=== PATIENT | female | born 1980 | race Caucasian/White ===

== ENCOUNTER → 2020-05-11 16:00 | Outpatient (CLI) | payer OTHER, SELFPAY ==
--- NOTE | ~2020-05-11 | MM_ITS ---
EXAMINATION: MM screening [facility] BI w balta HISTORY: Screening mammogram TECHNIQUE: Craniocaudal and mediolateral oblique 3-D tomosynthesis images were obtained and synthetic 2-D images were generated. CAD analysis was submitted and interpreted. COMPARISON: None, baseline BREAST PARENCHYMAL COMPOSITION: The breasts are heterogeneously dense, which may obscure small masses . FINDINGS: RIGHT BREAST: Asymmetry is present in the posterior third of the upper breast on the mediolateral obl ique view. LEFT BREAST: There is low-density mass in the posterior third of the outer breast which could reflect a cyst. No suspicious calcification or architectural distortion are identified. IMPRESSION: 1. Bilateral breast findings as described above. 2. Additional mammographic views and possible breast ultrasound are recommended to evaluate for malig daysi and establish a baseline given that this is the first mammographic examination. BI-RADS Category 0: Incomplete: Needs additional imaging evaluation. Reviewed, dictated and finalized at location A. DRY MELT SUPERVISOR IMPRESSION: 1. Bilateral breast findings as described above. 2. Additional mammographic views and possible breast ultrasound are recommended to evaluate for malignancy and establish a baseline given that this is the fir st mammographic examination. BI-RADS Category 0: Incomplete: Needs additional imaging evaluation.
== END ==
PROVIDERS: PCP Family Medicine; Visit Provider Family Medicine
DX: Z12.31 Encounter for screening mammogram for malignant neoplasm of breast (principal); R92.8 Other abnormal and inconclusive findings on diagnostic imaging of breast
CPT/HCPCS: 77063; 77067

== ENCOUNTER → 2020-06-11 08:53 | Outpatient (CLI) | payer OTHER, SELFPAY ==
--- NOTE | ~2020-06-11 | MMUS_ITS ---
EXAMINATION: MM diagnostic mammo BI, US breast LT limited HISTORY: Right breast asymmetry and left breast mass on baseline screening mammogram TECHNIQUE: Additional 3-D tomosynthesis images of the breasts were performed and synthetic 2-D images were generated. CAD analysis was submitted and interpreted. High resolution limited left breast ultr asound was performed. COMPARISON: 05/11/2020 FINDINGS: MAMMOGRAPHIC FINDINGS: Right breast: No persistent asymmetry is identified with spot compression of the right breast. Left breast: There is a 5 mm round, circumscribed, low density mass in the posterior third of the out er breast at the 3:00 location 8.5 cm from the nipple. No suspicious architectural distortion or calc ification are identified. ULTRASOUND: There is a 4 mm oval, circumscribed, parallel, hypoechoic mass with no posterior features or internal vascularity at the 3:00 location 4 cm from the nipple. IMPRESSION: 1. No persistent abnormality of the right breast and probably benign left breast mass. 2. Recommend 6 month follow-up left diagnostic mammogram and ultrasound. BI-RADS category 3, probably benign findings. Reviewed, dictated and finalized at location A. R MAKER IMPRESSION: 1. No persistent abnormality of the right breast and probably benign left breas t mass. 2. Recommend 6 month follow-up left diagnostic mammogram and ultrasound. BI-RADS category 3, probably benign findings.
== END ==
PROVIDERS: PCP Family Medicine; Visit Provider Family Medicine
DX: R92.8 Other abnormal and inconclusive findings on diagnostic imaging of breast (principal)
CPT/HCPCS: 76642; 77066

== ENCOUNTER → 2020-11-30 07:49 | Outpatient (CLI) | payer OTHER, SELFPAY ==
--- NOTE | ~2020-11-30 | MMUS_ITS ---
EXAMINATION: MM diagnostic nneka LT w balta, US breast LT limited HISTORY: Six-month follow-up of probably benign 5 mm low-density mass in posterior third of outer lef t breast at 3:00 TECHNIQUE: ML, MLO and craniocaudal 3-D tomosynthesis images of the left breast were performed and sy nthetic 2-D images were generated. CAD analysis was submitted and interpreted. High resolution limite d left breast ultrasound was performed. COMPARISON: 06/11/2020 diagnostic bilateral mammogram and limited left breast ultrasound 05/11/2020 bilateral digital screening mammogram BREAST PARENCHYMAL COMPOSITION: There are scattered areas of fibroglandular density. FINDINGS: MAMMOGRAPHIC FINDINGS: No suspicious mass or architectural distortion, malignant calcification, skin thickening or retractio n or significant new or developing density is detected. ULTRASOUND: 3:00 4 cm from nipple: 3 x 3.4 mm circumscribed hypoechoic lesion without shadowing, stable or slight ly diminished in size since 06/11/2020 IMPRESSION: 1. Stable or slightly diminished size of 3:00 circumscribed hypoechoic lesion, probably benign 2. Additional 6 month follow-up left targeted breast ultrasound examination is recommended BI-RADS category 3, probably benign findings. Reviewed, dictated and finalized at location A. IMPRESSION: 1. Stable or slightly diminished size of 3:00 circumscribed hypoechoic lesion, probably benign 2. Additional 6 month follow-up left targeted breast ultrasound examination is recommended BI-RADS category 3, probably benign findings.
== END ==
PROVIDERS: Visit Provider Physician Assistant
DX: N63.20 Unspecified lump in the left breast, unspecified quadrant (principal); R92.8 Other abnormal and inconclusive findings on diagnostic imaging of breast
CPT/HCPCS: 76642; 77061; 77065; G0279

== ENCOUNTER → 2021-08-08 07:49 | Outpatient (CLI) | payer OTHER, SELFPAY ==
--- NOTE | ~2021-08-08 | MMUS_ITS ---
EXAMINATION: MM diagnostic nneka BI w balta, US breast LT limited HISTORY: Follow-up left breast mass TECHNIQUE: Additional 3-D tomosynthesis images of the breasts were performed and synthetic 2-D images were generated. CAD analysis was submitted and interpreted. High resolution Limited left breast ultr asound was performed. COMPARISON: Comparison to multiple prior studies sequentially, with oldest reviewed study dated 04/25. BREAST PARENCHYMAL COMPOSITION: Breast composed of scattered areas of fibroglandular density. FINDINGS: MAMMOGRAPHIC FINDINGS: There are no suspicious masses, calcifications or architectural distortion in either breast to sugges t malignancy. ULTRASOUND: Limited left breast ultrasound: Normal heterogeneous echotexture without focal mass. IMPRESSION: 1. No evidence for malignancy in either breast. 2. Routine yearly screening mammogram and regular clinical breast examination are recommended. BI-RADS Category 1: Negative Reviewed, dictated and finalized at location A. ER POISONER IMPRESSION: 1. No evidence for malignancy in either breast. 2. Routine yearly screening mammogram and regular clinical breast examination a re recommended. BI-RADS Category 1: Negative
== END ==
PROVIDERS: PCP Registered Nurse; Visit Provider Registered Nurse
DX: R92.8 Other abnormal and inconclusive findings on diagnostic imaging of breast (principal)
CPT/HCPCS: 76642; 77062; 77066; G0279

== ENCOUNTER → 2022-08-29 15:14 | Outpatient (CLI) | payer OTHER, SELFPAY ==
--- NOTE | ~2022-08-29 | MM_ITS ---
EXAMINATION: MM screening [facility] BI w balta HISTORY: Screening mammogram TECHNIQUE: Craniocaudal and mediolateral oblique 3-D tomosynthesis images were obtained and synthetic 2-D images were generated. CAD analysis was submitted and interpreted. COMPARISON: 08/08/2021, 11/30/2020, 06/11/2020 BREAST PARENCHYMAL COMPOSITION: There are scattered areas of fibroglandular density. FINDINGS: No suspicious mass, calcification, or architectural distortion are identified in either león ast to suggest malignancy. There has been no suspicious interval change. IMPRESSION: 1. No mammographic evidence of malignancy. 2. Recommend routine screening mammography in one year. BI-RADS Category 1: Negative Reviewed, dictated and finalized at location A. H CLERK
== END ==
PROVIDERS: PCP Registered Nurse; Visit Provider Registered Nurse
DX: Z12.31 Encounter for screening mammogram for malignant neoplasm of breast (principal)
CPT/HCPCS: 77063; 77067

== ENCOUNTER 2023-09-13 15:34 | Outpatient (CLI) | payer OTHER, SELFPAY ==
--- NOTE | ~2023-09-13 | MM_ITS ---
EXAMINATION: MM screening [facility] BI w balta HISTORY: Screening TECHNIQUE: Craniocaudal and mediolateral oblique 3-D tomosynthesis images were obtained and synthetic 2-D images were generated. CAD analysis was submitted and interpreted. COMPARISON: Comparison to multiple prior studies sequentially, with oldest reviewed study dated 04/25. BREAST PARENCHYMAL COMPOSITION: Not dense: There are scattered areas of fibroglandular density. FINDINGS: There is no evidence of suspicious mass, calcification, or architectural distortion to sugg est malignancy in either breast. There has been no suspicious interval change. IMPRESSION: 1. No mammographic evidence of malignancy. 2. Recommend routine screening mammography in one year. BI-RADS Category 1: Negative Reviewed, dictated and finalized at location A.
== END 2023-09-13 15:35 ==
LOC: MICIMG 15:35
PROVIDERS: PCP Registered Nurse; Visit Provider Registered Nurse
DX: Z12.31 Encounter for screening mammogram for malignant neoplasm of breast (principal)
CPT/HCPCS: 77063; 77067

== ENCOUNTER 2024-11-28 13:24 | Outpatient (CLI) | payer OTHER, SELFPAY ==
--- NOTE | ~2024-11-28 | MM_ITS ---
EXAMINATION: MM screening [facility] BI w balta HISTORY: Screening TECHNIQUE: Craniocaudal and mediolateral oblique 3-D tomosynthesis images were obtained and synthetic 2-D images were generated. CAD analysis was submitted and interpreted. COMPARISON: Comparison to multiple prior studies sequentially, with oldest reviewed study dated 04/25. BREAST PARENCHYMAL COMPOSITION: There are scattered areas of fibroglandular density. FINDINGS: There is no evidence of suspicious mass, calcification, or architectural distortion to sugg est malignancy in either breast. There has been no suspicious interval change. IMPRESSION: 1. No mammographic evidence of malignancy. 2. Recommend routine screening mammography in one year. BI-RADS Category 1: Negative Reviewed, dictated and finalized at location B.
== END 2024-11-28 13:25 | disposition home or self-care (01) ==
LOC: MICIMG 13:24
PROVIDERS: PCP Registered Nurse; Visit Provider Registered Nurse
DX: Z12.31 Encounter for screening mammogram for malignant neoplasm of breast (principal)
CPT/HCPCS: 77063; 77067

== ENCOUNTER 2025-04-10 00:03 | Day surgery (SDC) | payer OTHER, SELFPAY ==
[2025-04-01 15:53] VITALS: BMI 25.9
--- OUTSIDE RECORDS SUMMARY | 2025-04-10 00:05 | XMS_ITS | Clinical Summary ---
Author Organization [facility] Address [address] [place] [address] Care Team Providers Care Paste Up Worker Name Role Phone Ligia Sol Primary Care Provider + Allergies No known active allergies Medications Lo Loestrin Fe 1 mg-10 mcg (24)/10 mcg (2) tablet per tablet Take 1 tablet by mouth daily 4 Active benzonatate (TESSALON) 100 mg capsuleIndicati ons:Cough Take 1 capsule (100 mg total) by mouth 3 (three) times a day as needed for cough 42 capsule 4 Active meloxicam (MOBIC) 15 mg tablet Take 1 tablet (15 mg total) by mouth daily with breakfast Take 1 daily with food 30 tablet 5 Active Active Problems No known active problems Encounters Date Type Department Care Team Description 04/07/2025 8:15 AM CDT Office Visit [facility] Medicine Orthopaedic Surgery [id number] [place] [address] [address]nd [address] [place] [id number] Estrada Boucher PA Tendinitis of right rotator cuff (Primary Dx); Lateral epicondylitis of right elbow 03/13/2025 Telephone [facility] Medicine Orthopaedic Surgery [id number] [place] [address] 2nd Floor [address] [place] [address] Peggy Roth RMA 03/03/2025 3:30 PM CDT - 03/03/2025 11:59 PM CDT Hospital Encounter [facility] [address] [place] [address] Right shoulder pain, unspecified chronicity Discharge Disposition: Discharge to home or self care 03/03/2025 3:15 PM CDT Office Visit [facility] Medicine Orthopaedic Surgery [address] [facility] 2nd Floor [address] [place] [address] Estrada Boucher PA Tendinitis of right rotator cuff (Primary Dx); Right shoulder pain, unspecified chronicity; Subacromial bursitis of right shoulder joint from Last 3 Months Surgical History Surgery Date Site/Laterality Comments CHOLECYSTECTOMY 09/2007 Family History Medical History Relation Name Comments Diabetes Mother Tanya Meeks Relation Name Status Comments Mother Tanya Meeks Social History Tobacco Use Types Packs/Day Years Used Date Smoking Tobacco: Never Smokeless Tobacco: Never Tobacco Cessation:Counseling Given: Not Answered Comments Unknown Sex and Gender Information Value Date Recorded Sex Assigned at Not on file Legal Sex Female 2:15 PM CEILING CLEANER Gender Identity Not on file Sexual Orientation Not on file Obstetrics History Last Filed Vital Signs Vital Sign Reading Time Taken Comments Blood Pressure 101/70 06/17/2024 11:53 AM CEILING CLEANER Pulse 100 06/17/2024 11:53 AM CEILING CLEANER Temperature 37.1 C (98.8 F) 06/17/2024 11:53 AM CEILING CLEANER Respiratory Rate 20 06/17/2024 11:53 AM CEILING CLEANER Oxygen Saturation 98% 06/17/2024 11:53 AM CEILING CLEANER Inhaled Oxygen Concentration - - Weight 74.8 kg (165 lb) 04/07/2025 8:19 AM CDT Height 172.7 cm (5' 8) 04/07/2025 8:19 AM CDT Body Mass Index 25.09 04/07/2025 8:19 AM CDT Plan of Treatment Health Maintenance Due Date Last Done Comments Breast Cancer Screening-Mammogram 1979 Colon Cancer Screening-Colonoscopy 1979 Depression Screening 1979 Varicella Vaccines (1 of 2 - 13+ 2-dose series) 11/26/1992 Regular Well Visit/Exam 18-64 11/26/1997 HPV Vaccines (1 - 3-dose SCDM series) 11/26/2006 Cervical Cancer Screening 06/03/2019 06/03/2018 Covid-19 Vaccine ( season) 2025 05/22/2021, 08/27/2020 Influenza Vaccine (#1) 2025 , 04/02/2023, 04/03/2022, Additional history exists DTaP/Tdap/Td Vaccine (2 - Td or Tdap) 05/26/2031 05/26/2021, 05/02/2004 Hepatitis B Screening Completed 10/03/2018 , 12/01/2002, 07/07/2002, Additional history exists Hepatitis C Screening Completed 10/03/2018 Pneumococcal vaccine <65 Aged Out No longer eligible based on patient's age to complete this topic Procedures Procedure Name Priority Date/Time Associated Diagnosis Comments XR SHOULDER RIGHT 2 OR MORE VIEWS Schedule Routine, Read Routine (OP Routine) 03/03/2025 3:44 PM CDT Right shoulder pain, unspecified chronicity HEPATITIS C ANTIBODY Routine 10/03/2018 7:07 AM CDT Encounter for donation of kidney PAP SMEAR Routine 06/03/2018 from Last 3 Months or Most Recently Relevant to Health Maintenance Results * XR Shoulder Right 2 or More Views (03/03/2025 3:44 PM CDT) Anatomical Region Laterality Modality Upper Extremities, Shoulder Right Comp uted Radiography 03/03/2025 4:28 PM CDT Impressions 03/03/2025 4:28 PM CDT Normal right shoulder radiographs. Electronically signed by: Rigo Avery M.D. Narrative 03/03/2025 4:28 PM CDT EXAMINATION: XR SHOULDER RIGHT 2 OR MORE VIEWS HISTORY: right shoulder pain COMPARISON: None FINDINGS: No acute fracture or dislocation. Normal joint spaces. Procedure Note Rigo Avery MD - 03/03/2025 EXAMINATION: XR SHOULDER RIGHT 2 OR MORE VIEWS HISTORY: right shoulder pain COMPARISON: None FINDINGS: No acute fracture or dislocation. Normal joint spaces. IMPRESSION: Normal right shoulder radiographs. Electronically signed by: Rigo Avery M.D. Estrada SADLER IMG XR PROCEDURES Final Result * Hepatitis C antibody (10/03/2018 7:07 AM CDT) Hep C Ab Nonreactive Nonreactive [facility] Comment: Interpretive Data Positive results should be confirmed by a molecular method. If positive, a second separately collected sample should be submitted for Hepatitis C Virus (HCV) RNA Detection and Quantitation by Real-Time Reverse Certifed Refrigeration Operator-PCR (RT-PCR). Current interpretive data was last revised on 2016. Blood specimen (specimen) 10/03/2018 7:07 AM CDT 10/03/2018 7:53 AM CDT Narrative [facility] - 10/03/2018 11:46 AM CDT Dav Finn MD LAB MICROBIOLOGY - GENERAL [facility] Edited Result - Final [facility] [place] [address] * Pap Smear (06/03/2018) 06/03/2018 Judith Arreguin - 11/20/2018 3:38 PM CDT Received Pap Smear results from [facility] Negative for Intraepithelial Lesion or Malignancy Historical Provider LAB PATHOLOGY ORDERABLES Final Result from Last 3 Months or Most Recently Relevant to Health Maintenance Insurance [facility] [id number] [facility] [id number] Care Teams Paste Up Worker Relationship Specialty Start Date End Date Ligia Sol PA [address] [place] [address] PCP - General Nurse Practitioner 02/02/25
--- OUTSIDE RECORDS SUMMARY | 2025-04-10 00:05 | XMS_ITS | Clinical Summary ---
Author Organization [facility] Address [facility] [place] [address] Care Team Providers Care Cone Runner Name Role Phone Ligia Sol Primary Care Provider [phone]- [phone] Allergies No known active allergies Medications LO LOESTRIN FE 1 MG-10 MCG / 10 MCG Tab Take 1 tablet by mouth daily. 4 Active triamcinolone (KENALOG) 0.1 % cream APPLY THIN LAYER TOPICALLY TO RASH TWICE DAILY FOR 2 TO 3 WEEKS NEEDED FOR FLARES 3 Active Multiple Vitamin (MULTI-DAY VITAMINS OR) Active Active Problems Problem Noted Date Diagnosed Date Vitamin D deficiency 11/06/2023 Seasonal allergies 11/06/2023 Immunizations Immunization Administration Dates Next Due Hepatitis B Vaccine Adult 12/01/2002,07/07/2002, 06/02/2002 Influenza (Generic) 04/02/2023,04/22/2021 Influenza Adult (Generic) 03/27/2024,03/2022,03/20/2020,2018 MODERNA COVID-19 (TALENT PROGRAM MANAGER RAI HARPER), MRNA, LNP-S, PF, 50 MCG/ 0.25 ML DOSE 05/22/2021 PFIZER COVID-19 (12+) MRNA, LNP-S, PF, KENIA-SUCROSE, 30 MCG/0.3 ML (COMIRNATY) 12/12/2024 Td (TDVAX) 05/02/2004 Tdap (Adacel) 05/26/2021 Family History Medical History Relation Comments No Known Problems Brother Thyroid Father Heart Maternal Grandmother Diabetes Mother Also kidney coronado splant Kidney transplant Mother No Known Problems Son Relation Status Comments Brother Alive Father Alive Maternal Grandfather Maternal Grandmother Alive Mother Alive Paternal Grandfather Paternal Grandmother Son Alive Social History Tobacco Use Types Packs/Day Years Used Date Smoking Tobacco: Never Smokeless Tobacco: Never Tobacco Cessation:Counseling Given: Not Answered Alcohol Use Standard Drinks/Week Comments Yes 1.7 (1 standard drin k = 0.6 oz pure alcohol) social- very seldom. [place] PHQ-2 Answer Date Recorded Patient Health Questionnaire-2 Score 0 12/12/2024 Comments No Sex and Gender Information Value Date Recorded Sex Assigned at Female 12/12/2024 7:40 AM CDT Legal Sex Female 10:40 PM SUPERVISOR CUTTING DEPARTMENT Gender Identity Not on file Sexual Orientation Not on file Last Filed Vital Signs Vital Sign Reading Time Taken Comments Blood Pressure 100/60 12/12/2024 7:40 AM CDT Pulse 97 12/12/2024 7:40 AM CDT Temperature 36.5 C (97.7 F) 12/12/2024 7:40 AM CDT Respiratory Rate 16 12/12/2024 7:40 AM CDT Oxygen Saturation 98% 12/12/2024 7:40 AM CDT Inhaled Oxygen Concentration - - Weight 73.3 kg (161 lb 9.6 oz) 12/12/2024 7:40 A M CDT Height 172.7 cm (5' 8) 12/12/2024 7:40 AM CDT Body Mass Index 24.57 12/12/2024 7:40 AM CDT Plan of Treatment Health Maintenance Due Date Last Done Comments Colorectal Cancer Screening Colonoscopy (10 Years) 1979 HPV Vaccines (1 - 3-dose SCDM series) 11/26/2006 Cervical Cancer Screening Pap with HPV Testing (Age 30 to 64) Every 5 Years 11/26/2009 Influenza Adult (#1) 2025 03/27/2024, 04/02/2023, 04/03/2022, Additional history exists Annual Physical 12/12/2025 12/12/2024, 10/23, 04/14/2022 Cervical Cancer Screening Pap Smear (Age 30 to 64) Every 3 Years 09/27/2026 09/28/2023 Cervical Cancer Screening with HPV 09/27/2026 Mammogram Screening 11/28/2026 11/28/2024, 09/13/2023, 08/29/2022, Additional history exists DTaP, Tdap and Td Vaccines (2 - Td or Tdap) 05/26/2031 05/26/2021, 05/02/2004 Hepatitis B Vaccines Completed 12/01/2002, 07/07/2002, 06/02/2002 Hepatitis C Completed 05/16/2022 COVID-19 Vaccine Completed 12/12/2024, , 08/27/2020 PHQ-2 (Physician Hallett) Completed 12/12/2024 Hepatitis A Vaccines Aged Out No long er eligible based on patient's age to complete this topic Meningococcal B Vaccine Aged Out No l onger eligible based on patient's age to complete this topic Meningococcal Vaccine Aged Out No walter flor eligible based on patient's age to complete this topic Pneumococcal Vaccine: Pediatrics (0 to 5 Years) and At-Risk Patients (6 to 49 Years) Aged Out No longer eligible based on patient's age to complete this topic RSV Immunizations Under 20 Months Aged Out No longer eligible based on patient's age to complete this topic Procedures Procedure Name Priority Date/Time Associated Diagnosis Comments MAMMOGRAM GENERIC (SCAN ORDER) 11/28/2024 HEPATITIS C ANTIBODY Routine 05/16/2022 8:33 AM SUPERVISOR CUTTING DEPARTMENT Need for hepatitis C screening test from Last 3 Months or Most Recently Relevant to Health Maintenance Results * MAMMOGRAM GENERIC (SCAN ORDER) (11/28/2024) Anatomical Region Laterality Modality Other 11/28/2024 us Doc Med [facility] Scanned SCANNING Final Resu lt * HEPATITIS C AB ([facility] ONLY) (05/16/2022 8:33 AM SUPERVISOR CUTTING DEPARTMENT) HEPATITIS C AB NON-REACTI VE NON-REACT LISA 05/16/2022 10:12 PM SUPERVISOR CUTTING DEPARTMENT [facility] Comment: ANTIBODIES TO HCV NOT DETECTED. DOES NOT EXCLUDE THE POSSIBILITY OF EXPOSURE TO HCV. 05/16/2022 8:33 AM SUPERVISOR CUTTING DEPARTMENT [facility]ia [facility] Final Resul t [facility] [address] [place] [address], [id number] from Last 3 Months or Most Recently Relevant to Health Maintenance Insurance [employer] [facility] Care Teams Cone Runner Relationship Specialty Start Date End Date Ligia Sol APNP [facility] [place] [address] PCP - General NURSE PRACTITIONER 05/26/21
[2025-04-10 06:54] VITALS: BP 102/60; PULSE 91; RESP 18; TEMP 36.4; O2SAT 99
[2025-04-10] MEDS: LACTATED RINGERS 1,000 ML 150 ML IV CONT (07:04)
--- NOTE | 2025-04-10 07:07 | WPDANESEPPF ---
Anes - Initial Pre Proc Eval Procedure: Operation Date: 04/10/25 08:00 Proposed Procedures p Screening Colonoscopy - Sukhi Raygoza MD Date/Time: 04/10/25 07:07 Surgeon: Sukhi Raygoza MD Pre Op Diagnosis: Encounter for screening for malignant neoplasm of Patient Data Age: 44 Gender: F Height: 1.73 m Weight: 73.3 kg Last Vital Signs Temp 36.4 C L 04/10/25 06:54 Pulse 91 04/10/25 06:54 Resp 18 04/10/25 06:54 BP 102/60 04/10/25 06:54 Pulse Ox 99 04/10/25 06:54 O2 Del Method Room Air 04/10/25 06:54 Allergies Allergy/AdvReac Type Severity Reaction Status Date / Time No Known Allergies Allergy Unknown Verified 04/10/25 06:51 Home Medications ?Medication ?Instructions ?Recorded ?Confirmed ?Type ferrous sulfate 325 mg (65 mg 325 mg PO DAILY 04/01/25 04/01/25 History iron) tablet (Feosol) meloxicam 15 mg tablet 15 mg PO DAILY 04/01/25 04/01/25 History multivitamin (Daily Multi-Vitamin 1 tablet PO DAILY 04/01/25 04/01/25 History tablet) norethindrone 1 mg-ethinyl 1 tablet PO DAILY 04/01/25 04/01/25 History estradiol 10 mcg (24)-iron 10 mcg(2) tablet (Lo Loestrin Fe) Patient hx anesthesia problems: none Family hx anesthesia problems: none Results Review: All pre-operative results and documents have been reviewed as part of the pre-operative evaluation. [facility] Family History Family History (Updated 03/18/19 @ 10:25 by DOCTOR UNKNOWN) Father Family history of thyroid disease Hypertension Mother Diabetes mellitus Family history of congestive heart failure Grandparent Family history of cardiovascular disease Social History Social History Smoking status: Never smoker Second hand tobacco smoke exposure: No Alcohol intake: current Substance use: never Substance use type: does not use Living arrangements: with family Spiritual care concerns: No Anes - Eval Final PreProcedure Day of Procedure 04/10/25 07:07 Patient weight: normal Heart: regular rate and rhythm Lungs: clear to auscultation and normal air movement Airway: Mallampati scale class II Neurological: alert and oriented Last oral intake: >/= 8 hours ASA classification: I Emergent: no Anesthetic plan: proceed Anesthesia type and monitoring: general GIVS and standard monitoring Results Review: All pre-operative results and documents have been reviewed as part of the pre-operative evaluation. Informed Consent: The patient's anesthetic plan and its attendant risks and benefits were discussed with the patient/family/POA. Questions were solicited and answers provided to the satisfaction of the patient/family/POA.
--- NOTE | 2025-04-10 07:24 | PM.IMHP ---
H&P: HPI History of Present Illness Date/Time: 04/10/25 07:24 Chief Complaint: Screening colonoscopy Narrative: This is the patient's first colonoscopy. There are no GI symptoms and there is no family history of colorectal cancer. Review of Systems Review of Systems: All systems reviewed & are unremarkable except as noted in HPI and below PMFSH Family History Family History (Updated 03/18/19 @ 10:25 by DOCTOR UNKNOWN) Father Family history of thyroid disease Hypertension Mother Diabetes mellitus Family history of congestive heart failure Grandparent Family history of cardiovascular disease Social History Social History Smoking status: Never smoker Second hand tobacco smoke exposure: No Alcohol intake: current Substance use: never Substance use type: does not use Living arrangements: with family Spiritual care concerns: No Meds Home Medications and Allergies Home Medications ?Medication ?Instructions ?Recorded ?Confirmed ?Type ferrous sulfate 325 mg (65 mg 325 mg PO DAILY 04/01/25 04/01/25 History iron) tablet (Feosol) meloxicam 15 mg tablet 15 mg PO DAILY 04/01/25 04/01/25 History multivitamin (Daily Multi-Vitamin 1 tablet PO DAILY 04/01/25 04/01/25 History tablet) norethindrone 1 mg-ethinyl 1 tablet PO DAILY 04/01/25 04/01/25 History estradiol 10 mcg (24)-iron 10 mcg(2) tablet (Lo Loestrin Fe) Allergies Allergy/AdvReac Type Severity Reaction Status Date / Time No Known Allergies Allergy Unknown Verified 04/10/25 06:51 Vital Signs Vital Signs - 24 hr 04/10/25 06:54 Temperature 97.5 F L Pulse Rate 91 Respiratory Rate 18 Blood Pressure 102/60 Pulse Oximetry 99 Oxygen Delivery Room Air Exam Const: General: cooperative and healthy appearing Resp: Effort & Inspection: normal respiratory effort and able to speak in complete sentences Auscultation: clear to auscultation bilaterally Cardio: Rate: regular rate Rhythm: regular rhythm GI: Inspection: normal to inspection GI Palp: No No hepatosplenomegaly present Auscultation: normal bowel sounds Rectal Exam: deferred Skin: General skin exam: normal color Psych: Appearance: grossly normal Mental Status: mental status grossly normal Assessment and Plan Assessment and plan (1) Encounter for screening colonoscopy: Code(s): Z12.11 - Encounter for screening for malignant neoplasm of colon Status: Acute Assessment and Plan: The patient is deemed a good candidate for the procedure. Consent signed. Will proceed.
[2025-04-10 08:31] VITALS: BP 101/62; PULSE 84; RESP 22; O2SAT 100
[2025-04-10 08:32] LABS: BEDSIDEPREGUCG Negative (Negative)
[2025-04-10 08:41] VITALS: BP 110/54; PULSE 82; RESP 16; O2SAT 100
[2025-04-10 08:51] VITALS: BP 106/75; PULSE 73; RESP 20; O2SAT 100
== END 2025-04-10 08:53 | disposition home or self-care (01) ==
PROVIDERS: PCP Registered Nurse; Visit Provider Internal Medicine Gastroenterology
PROC: 0DJD8ZZ Inspection of Lower Intestinal Tract, Via Natural or Artificial Opening Endoscopic (ICD-10-PCS; CPT 45378; principal; 2025-04-10 08:00)
DX: Z12.11 Encounter for screening for malignant neoplasm of colon (principal)
CPT/HCPCS: 45378; J2003; J2704; J7120